=== PATIENT | male | born 1930 ===

== ENCOUNTER 2017-09-28 17:17 | Emergency (ER) | payer OTHER ==
[2017-09-28 17:56] VITALS: BP 156/83; PULSE 75; TEMP 97.8; O2SAT 98
[2017-09-28 19:14] LABS: HEMOGLOBIN 11.3 g/dL (12.0-18.0); MEAN CELL VOLUME 86.3 fL (80.0-94.0); MEAN CORPUSCULAR HEMOGLOBIN 27.7 pg (27.0-31.0); MEAN CORPUSCULAR HGB CONC 32.1 g/dL (33.0-37.0); MEAN PLATELET VOLUME 7.7 fL (7.2-11.7); RBC 4.08 Mil/uL (4.40-5.90); RED CELL DISTRIBUTION WIDTH 13.7 % (11.5-14.5); WHITE BLOOD COUNT 6.4 K/uL (4.8-10.8)
[2017-09-28 19:27] LABS: ALB/GLOB RATIO 1.3 (1.0-2.1); ALBUMIN 4.4 g/dL (3.5-5.0); CALCIUM 9.6 mg/dl (8.6-10.4)
[2017-09-28 19:33] VITALS: RESP 18
[2017-09-28 19:39] LABS: CK-MB 1.34 ng/mL (0.0-3.38); TROPONIN I 0.012 ng/mL (0.00-0.120)
--- NOTE | 2017-09-28 21:12 | C.PDOC ---
History Of Present Illness 86 y/o male with history of HTN presents to ED with c/o ankle swelling for 3 days associated with dyspnea on exertion. Patient denies chest pain, fever, cough or any other complaints at this time. Chief Complaint (Nursing): Shortness Of Breath History Per: Patient History/Exam Limitations: no limitations Onset/Duration Of Symptoms: Days Current Symptoms Are (Timing): Still Present Past Medical History Reviewed: Historical Data, Nursing Documentation, Vital Signs Vital Signs: Last Vital Signs Temp 97.8 F 09/28/17 17:49 Pulse 75 09/28/17 17:49 Resp 18 09/28/17 19:32 BP 156/83 H 09/28/17 17:49 Pulse Ox 98 09/28/17 21:13 - Medical History PMH: No Chronic Diseases Surgical History: No Surg Hx Family History: States: No Known Family Hx - Social History Hx Alcohol Use: No Hx Substance Use: No Review Of Systems Constitutional: Negative for: Fever, Chills Cardiovascular: Negative for: Chest Pain Respiratory: Positive for: SOB with Excertion. Negative for: Cough Gastrointestinal: Negative for: Nausea, Vomiting Musculoskeletal: Positive for: Leg Pain (Swelling) Skin: Negative for: Rash Physical Exam - Physical Exam Appears: Non-toxic, No Acute Distress Skin: Warm, Dry, No Rash Head: Atraumatic, Normacephalic Eye(s): bilateral: Normal Inspection Oral Mucosa: Moist Neck: Normal ROM, Supple Cardiovascular: Rhythm Regular Respiratory: Normal Breath Sounds, No Rales, No Rhonchi, No Wheezing Gastrointestinal/Abdominal: Soft, No Tenderness, No Guarding, No Rebound Extremity: Pedal Edema (2+ bilaterally), Capillary Refill (<2 seconds), No Deformity Neurological/Psych: Oriented x3, Normal Speech, Normal Cognition ED Course And Treatment - Laboratory Results Result Diagrams: 09/28/17 19:09 09/28/17 19:09 ECG: Interpreted By Me, Viewed By Me ECG Rhythm: Sinus Rhythm, PVC Rate From EC O2 Sat by Pulse Oximetry: 98 (RA) Pulse Ox Interpretation: Normal Medical Decision Making Medical Decision Making: Progress: Discussed dispo with family at bedside, Patient will receive lasix at ED and be discharged home with lasix prescription. Patient instructed to f.u with PMD without fail in 1-2 days. Disposition - Disposition Referrals: [facility], [Non-Staff] - Disposition: HOME/ ROUTINE Disposition Time: 20:40 Condition: GOOD Additional Instructions: KAVYA DESOUZA, thank you for letting us take care of you today. Your provider was Master Laura DO. The emergency medical care you received today was directed at your acute symptoms. If you were prescribed any medication , please fill it and take as directed. It may take several days for your symptoms to resolve. Return to the Emergency Department if your symptoms worsen , do not improve, or if you have any other problems. Please contact your doctor or call one of the physicians/clinics you have been referred to that are listed on the Patient Visit Information form that is included in your discharge packet. Bring any paperwork you were given at discharge with you along with any medications you are taking to your follow up visit. Our treatment cannot replace ongoing medical care by a primary care provider outside of the emergency department. Thank you for allowing the [facility] team to be part of your care today. Follow up with your primary care doctor in 2-3 days for re-evaluation and further management. Prescriptions: Furosemide [Lasix] 40 mg PO DAILY #7 tab Instructions: Heart Failure, Adult (DC), Furosemide Forms: [employer] (Albanian) - Clinical Impression Clinical Impression: Chronic congestive heart failure - Scribe Statement The provider has reviewed the documentation as recorded by the Scribe Rosita Slaughter All medical record entries made by the Scribe were at my direction and personally dictated by me. I have reviewed the chart and agree that the record accurately reflects my personal performance of the history, physical exam, medical decision making, and the department course for this patient. I have also personally directed, reviewed, and agree with the discharge instructions and disposition.
--- NOTE | 2017-09-29 10:37 | RAD ---
HISTORY: SOB COMPARISON: No prior. FINDINGS: LUNGS: Poor inspiration with low lung volumes, crowded bronchovascular markings and mild bibasilar atelectasis PLEURA: No significant pleural effusion identified, no pneumothorax apparent. CARDIOVASCULAR: Normal. OSSEOUS STRUCTURES: No significant abnormalities. VISUALIZED UPPER ABDOMEN: Normal. OTHER FINDINGS: None. IMPRESSION: Poor inspiration with low lung volumes, crowded bronchovascular markings and mild bibasilar atelectasis
== END 2017-09-28 21:07 | disposition home or self-care (01) ==
LOC: C.ER 17:17
DX: I11.0 Hypertensive heart disease with heart failure (principal); I50.9 Heart failure, unspecified
CPT/HCPCS: 71045; 80053; 83880; 84484; 85027; 96374; 99283; J1940

== ENCOUNTER 2018-06-25 15:15 | Outpatient (CLI) | payer OTHER | END 2018-06-25 15:16 | disposition home or self-care (01) | LOC: C.USIC 15:15 | DX: N18.3 Chronic kidney disease, stage 3 (moderate) (principal) ==